=== PATIENT | female | born 1955 | race Caucasian/White ===

== ENCOUNTER 2017-01-02 16:50 | Emergency (ER) | payer MEDICAID ==
[~2017-01-02] VITALS: Ht 160 cm; Wt 66.0 kg
[~2017-01-02 16:50] MED LIST: ALBU18HF INHALATION; FLUT9.9S NASAL; KETO5DRO58 OP
[2017-01-02 17:02] VITALS: Ht 160 cm; Wt 66.0 kg
[2017-01-02] MEDS ORDERED: ONDANSETRON 4 MG INJ IV STA ×2 (18:37→23:17)
[2017-01-02] MEDS ORDERED: ACETAMINOPHEN 500 MG TAB PO STA (18:37)
[2017-01-02] MEDS ORDERED: SOD CHLORIDE 0.9% 1,000 ML IV STA (18:37)
[2017-01-02] MEDS ORDERED: KETOROLAC 15 MG INJ IV STA (18:37)
[2017-01-02 19:43] LABS: BASOPHIL # 0.1 10^3/ul (0.0-0.1); BASOPHILS % 0.9 % (0.0-2.0); EOSINOPHILS # 0.3 10^3/ul (0.0-0.5); EOSINOPHILS % 2.5 % (0.0-7.0); HEMOGLOBIN 12.9 g/dl (12.0-16.0); MEAN CORPUSCULAR HEMOGLOBIN 30.1 pg (29.0-33.0); MEAN CORPUSCULAR HGB CONC 33.1 g/dl (32.0-37.0); MEAN CORPUSCULAR VOLUME 91.1 fl (82.0-101.0); MEAN PLATELET VOLUME 10.1 fl (7.4-10.4); MONOCYTE # 1.3 10^3/ul (0.3-0.9); NEUTROPHIL # 9.4 10^3/ul (1.6-7.5); NEUTROPHILS % 71.3 % (39.0-77.0); PLATELET COUNT 295 10^3/UL (140-415); RED BLOOD COUNT 4.28 10^6/ul (4.20-5.40); RED CELL DISTRIBUTION WIDTH 13.1 % (11.5-14.5); WHITE BLOOD COUNT 13.2 10^3/ul (4.8-10.8)
[2017-01-02 20:03] LABS: ALBUMIN 4.5 g/dl (3.3-4.9); ALBUMIN/GLOBULIN RATIO 1.32; BILIRUBIN,INDIRECT 0.3 mg/dl (0-1.1); BILIRUBIN,TOTAL 0.3 mg/dl (0.2-1.3); CALCIUM 9.4 mg/dl (8.4-10.2); CREATININE 0.66 mg/dl (0.44-1.00); POTASSIUM 3.6 mmol/L (3.5-5.1); TOTAL PROTEIN 7.9 g/dl (6.1-8.1)
[2017-01-02 20:55] LABS: ADD UMIC NO; UR ASCORBIC ACID NEGATIVE (NEGATIVE); UR BILIRUBIN (Dip) NEGATIVE (NEGATIVE); UR BLOOD (Dip) NEGATIVE (NEGATIVE); UR CLARITY CLEAR (CLEAR); UR COLOR STRAW (YELLOW); UR GLUCOSE (Dip) 1+ mg/dL (NEGATIVE); UR KETONES (Dip) NEGATIVE (NEGATIVE); UR LEUKOCYTE ESTERASE (Dip) NEGATIVE Leu/ul (NEGATIVE); UR NITRITE (Dip) NEGATIVE (NEGATIVE); UR SPECIFIC GRAVITY (Dip) 1.006 (1.003-1.030); UR TOTAL PROTEIN (Dip) NEGATIVE (NEGATIVE); UR UROBILINOGEN (Dip) NEGATIVE (NEGATIVE)
--- NOTE | 2017-01-02 23:00 | RADRPT ---
PROCEDURE: XR Chest. CLINICAL INDICATION: Fever. TECHNIQUE: Single frontal view of the chest. COMPARISON: None. FINDINGS: The cardiomediastinal silhouette is within normal limits. Pulmonary vascular markings are accentuate d at lung bases secondary to overlying soft tissues. The lungs are clear. No signs of pleural fluid or pneumothorax are seen. The osseous structures and soft tissues are unremarkable. IMPRESSION: No evidence for active cardiopulmonary disease. RPTAT: [facility] Physician Payton Date Time Electronically viewed and signed by Physician Payton on 01/02/2017 22:59 RS/
[2017-01-02] MEDS ORDERED: morphine 10 MG INJ IV ONE (23:30)
[2017-01-03] MEDS ORDERED: ACET325T33 PO (00:35)
[2017-01-03] MEDS ORDERED: NAPR-688 PO (00:36)
[2017-01-03] MEDS ORDERED: ACETAMINOPHEN 325 MG TAB PO ONE (01:00)
--- NOTE | 2017-01-03 01:16 | RADRPT ---
PROCEDURE: XR Hip. CLINICAL INDICATION: Left hip pain and fever. TECHNIQUE: AP and frog lateral views of the left hip were performed. COMPARISON: None. FINDINGS: There is normal mineralization and alignment. No fracture or osseous lesion is identified. There are normal joints without evidence of arthritis or effusion. The soft tissues are unremarkable. IMPRESSION: Unremarkable left hip. RPTAT: [facility] Physician Payton Date Time Electronically viewed and signed by Physician Payton on 01/03/2017 01:16 RS/
--- NOTE | 2017-01-03 02:34 | RADRPT ---
PROCEDURE: Noncontrast CT examination of the left hip CLINICAL INDICATION: Left hip pain TECHNIQUE: Noncontrast CT examination of the left hip, with axial, sagittal and coronal reformatte d images. CTDI: 18.40 and DLP: 647.36 COMPARISON: Left hip plain film series dated today, earlier in the day FINDINGS: No acute fracture or dislocation. Dystrophic calcification at the expected location of the left pos terior labrum as well as over the posterior lateral left acetabulum may represent the sequela of a r emote posterior hip dislocation, with a posterior labral tear. If there is strong persistent concern for fracture MRI examination would be more sensitive and speci fic. Sigmoid colon diverticulosis. Mild distension of the urinary bladder. Soft tissues in the pelvis a re otherwise unremarkable. IMPRESSION: 1. No evident acute fracture. 2. If there is strong persistent concern for fracture MRI examination would be more sensitive and s pecific. 3. Likely remote tear of the posterior left labrum with dystrophic calcifications over the posterio r aspect of the lateral left acetabulum, suggesting sequela of remote posterior dislocation of the l eft hip. RPTAT: [facility] Physician Payton Date Time Electronically viewed and signed by Physician Payton on 01/03/2017 02:33 RS/
--- NOTE | 2017-01-03 02:35 | ERD ---
ER Documentation Chief Complaint Date/Time DATE: 01/03/17 TIME: 02:31 Chief Complaint Pt with Back pain that radiates to L leg X 2 days. HPI 61 year old female presents to the emergency department complaining of left hip pain that radiates down her left leg for the past couple days. Patient states fever started one day ago. She states pain is around 8/10, she can ambulate with difficulty ROS All systems reviewed and are negative except as per history of present illness. Medications Home Meds Active Scripts Naproxen* (Naproxen*) 500 Mg Tablet, 500 MG PO BID, #30 TAB Prov:DARCY GOOD PA-C 01/03/17 Acetaminophen* (Tylenol*) 325 Mg Tablet, 2 TAB PO Q4 Y for PAIN AND OR ELEVATED TEMP, #30 TAB Prov:DARCY GOOD PA-C 01/03/17 Ketotifen Fumarate (ZADITOR) 5 Ml Drops, 1 DROP OP Q8, #1 BOTTLE Prov:SOPHY WELCH ADOPTION WORKER 07/18/15 Fluticasone Propionate (Flonase Allergy Relief) 9.9 Ml [place].susp, 1 SPRAY NASAL DAILY, #1 BOTTLE TO EACH NOSTRIL Prov:SOPHY WELCH NP 07/18/15 Albuterol Sulfate* (Ventolin HFA*) 18 Gm Hfa.aer.ad, 2 PUFF INHALATION Q4H, #1 INHALER Prov:SOPHY WELCH. ADOPTION WORKER 07/18/15 Allergies Allergies: Coded Allergies: No Known Allergy (Unverified , 07/17/15) PMhx/Soc Medical and Surgical Hx: pt denies Surgical Hx Hx Respiratory Disorders: Yes (asthma) Hx Alcohol Use: No Hx Substance Use: No Hx Tobacco Use: No Smoking Status: Never smoker Physical Exam Vitals Vital Signs Date Time Temp Pulse Resp B/P Pulse Ox O2 Delivery O2 Flow Rate FiO2 01/03/17 02:50 98.0 65 18 105/68 98 Room Air 01/02/17 23:30 99.0 69 20 98/52 99 Room Air 01/02/17 17:02 100.1 90 18 109/71 97 Physical Exam Const: WD/WN Head: Atraumatic Eyes: Normal Conjunctiva ENT: Normal External Ears, Nose and Mouth. Neck: Full range of motion..~ No meningismus. Resp: Clear to auscultation bilaterally Cardio: Regular rate and rhythm, no murmurs Abd: Soft, non tender, non distended. Normal bowel sounds, non-tender. NO CVAT Skin: No petechiae or rashes Back: No midline or flank tenderness Ext: No cyanosis, or edema. TTP left hip, restricted ROM. able to ambulate with limp Neur: Awake and alert Psych: Normal Mood and Affect Result Diagram: 01/02/17192401/02/171924 Results 24 hrs Laboratory Tests Test 01/02/17 19:25 White Blood Count 13.210^3/ul Red Blood Count 4.2810^6/ul Hemoglobin 12.9g/dl Hematocrit 39.0% Mean Corpuscular Volume 91.1fl Mean Corpuscular Hemoglobin 30.1pg Mean Corpuscular Hemoglobin Concent 33.1g/dl Red Cell Distribution Width 13.1% Platelet Count 06139^3/UL Mean Platelet Volume 10.1fl Neutrophils % 71.3% Lymphocytes % 15.0% Monocytes % 10.0% Eosinophils % 2.5% Basophils % 0.9% Nucleated Red Blood Cells % 0.0/100WBC Neutrophils # 9.410^3/ul Lymphocytes # 2.010^3/ul Monocytes # 1.310^3/ul Eosinophils # 0.310^3/ul Basophils # 0.110^3/ul Nucleated Red Blood Cells # 0.010^3/ul Erythrocyte Sedimentation Rate 25mm/Hr Urine Color STRAW Urine Clarity CLEAR Urine pH 6.0 Urine Specific [place] 1.006 Urine Ketones NEGATIVEmg/dL Urine Nitrite NEGATIVEmg/dL Urine Bilirubin NEGATIVEmg/dL Urine Urobilinogen NEGATIVEmg/dL Urine Leukocyte Esterase NEGATIVELeu/ul Urine Hemoglobin NEGATIVEmg/dL Urine Glucose 1+mg/dL Urine Total Protein NEGATIVEmg/dl Sodium Level 142mmol/L Potassium Level 3.6mmol/L Chloride Level 103mmol/L Carbon Dioxide Level 25mmol/L Anion Gap 18 Blood Urea Nitrogen 13mg/dl Creatinine 0.66mg/dl Glucose Level 117mg/dl Calcium Level 9.4mg/dl Total Bilirubin 0.3mg/dl Direct Bilirubin 0.00mg/dl Indirect Bilirubin 0.3mg/dl Aspartate Amino Transf (AST/SGOT) 23IU/L Alanine Aminotransferase (ALT/SGPT) 35IU/L Alkaline Phosphatase 68IU/L C-Reactive Protein 5.2mg/dl Total Protein 7.9g/dl Albumin 4.5g/dl Globulin 3.40g/dl Albumin/Globulin Ratio 1.32 Lipase 111U/L Current Medications Medications (Trade) Dose Ordered Sig/Richy Route PRN Reason Start Time Stop Time Status Last Admin Dose Admin Sodium Chloride (NS) 1,000 ml @ 1,000 mls/hr Q1H STAT IV 01/02/17 18:37 01/02/17 19:36 DC 01/02/17 19:36 Ondansetron HCl (Zofran Inj) 4 mg ONCE STAT IV 01/02/17 18:37 01/02/17 18:39 DC 01/02/17 19:36 Ketorolac Tromethamine (Toradol) 15 mg ONCE STAT IV 01/02/17 18:37 01/02/17 18:39 DC 01/02/17 19:36 Acetaminophen (Tylenol Tab) 1,000 mg ONCE STAT PO 01/02/17 18:37 01/02/17 18:39 DC 01/02/17 19:36 Morphine Sulfate (morphine) 6 mg ONCE ONCE IV 01/02/17 23:30 01/02/17 23:31 DC 01/02/17 23:37 Ondansetron HCl (Zofran Inj) 4 mg ONCE STAT IV 01/02/17 23:17 01/02/17 23:18 DC 01/02/17 23:38 Acetaminophen (Tylenol Tab) 650 mg ONCE ONCE PO 01/03/17 01:00 01/03/17 01:01 DC 01/03/17 00:38 Procedures/MDM This is a 61-year-old female presenting to the emergency department febrile complaining of left hip pain that radiates down her left leg for the past 2 days. Differentials include but not limited to transient synovitis, viral syndrome with posterior left labrum tear. I doubt patient has septic joint at this time. Patient appears nontoxic, there is no evidence of pneumonia, meningitis, UTI or pyelonephritis. IV access is established. Lab work was done, patient had mild leukocytosis. UA did not show any evidence of infection. A urine culture was sent out. Chest x-ray did not show any evidence of infiltrates, no thorax or pleural effusion. X-ray of the left hip was negative. CT of the left hip was done and radiologist stated: 1. No evident acute fracture. 2. If there is strong persistent concern for fracture MRI examination would be more sensitive and specific. 3. Likely remote tear of the posterior left labrum with dystrophic calcifications over the posterior aspect of the lateral left acetabulum, suggesting sequela of remote posterior dislocation of the left hip. Patient was given Toradol, Tylenol and morphine in the ED. She appears doing better. I discussed with her to follow-up with her primary care physician. Discussed return to the ER for any worsening symptoms. Patient understands and agrees with this plan Departure Diagnosis: Primary Impression: Fever Additional Impression: Hip pain Condition: Stable Patient Instructions: Fever Control (Adult) Additional Instructions: FOLLOW UP WITH YOUR PRIMARY CARE PHYSICIAN TOMORROW.Return to this facility if you are not improving as expected. Take all medicines as directed. Return to this facility if you are not improving as expected. DARCY GOOD PA-C Jan 03, 2017 02:35
[2017-01-03 02:50] VITALS: BP 105/68; PULSE 65; RESP 18; TEMP 98
== END 2017-01-03 03:18 | disposition home or self-care (01) ==
LOC: FTE 16:50
DX: R50.9 Fever, unspecified (principal); J45.909 Unspecified asthma, uncomplicated
CPT/HCPCS: 71010; 73510; 73700; 80053; 81003; 83690; 85025; 85651; 86140; J1885; J2270; J2405; J7030; Z7610; 36415; 96374; 96375; 96376

== ENCOUNTER 2017-06-10 02:03 | Emergency (ER) | END 2017-06-10 08:47 | disposition home or self-care (01) ==

== ENCOUNTER 2018-08-22 21:19 | Emergency (ER) | payer MEDICAID ==
[~2018-08-22] VITALS: Ht 167.6 cm; Wt 69.4 kg
[~2018-08-22 21:19] MED LIST changes: +ACET325T33 PO; +ALBU8.5H8 INH; +HYDR-3980 PO; -KETO5DRO58 OP; +KETO5DRO71 OP; +NAPR-688 PO; +OSEL75CA23 PO
[2018-08-22 22:06] VITALS: Ht 167.6 cm; Wt 69.4 kg
[2018-08-22] MEDS ORDERED: ALBUTEROL 0.083% (NEB) 2.5 MG/3 ML AMP HHN STA (22:35)
--- NOTE | 2018-08-22 22:40 | ERD ---
ER Documentation Chief Complaint Chief Complaint SOB, CHEST CONGESTION, HX OF ASTHMA HPI This is a 63-year-old female presents to emerge department with complaints of shortness of breath, chest congestion, dry cough for about 3 days. Stated that she has been using her inhaler without relief. She also stated that she has been sneezing every morning. Added that she has history of allergies. LMP: Stated that she does not have any measured. Anymore. A0. Denies headache, head injury, loss of consciousness, dizziness, neck pain, neck stiffness, throat pain, difficulty swallowing, difficulty breathing lying flat, shoulder pain, chest pain, back pain, abdominal pain, nausea, vomiting, con stipation, diarrhea, urinary symptoms, or possibility being , loss of bowel and bladder control, trauma, injury, falls, difficulty walking due to pain, numbness or tingling sensation, calf pain, recent travel, recent major surgery in the last 3 weeks, calf pain, recent long travel, recent exposure to any illness, recent antibiotic use in the last 3 months, fever, chills, seizures. Past medical history: Asthma. Surgical history: Social: Denies smoking, use of alcoholic beverages, use of illegal drugs. ROS All systems reviewed and are negative except as per history of present illness. Medications Home Meds Active Scripts Prednisone* (Prednisone*) 20 Mg Tab, 20 MG PO DAILY for 2 Days, TAB Prov:JAIDA FERMIN F 08/22/18 Loratadine* (Loratadine*) 10 Mg Tablet, 10 MG PO DAILY, #30 TAB Prov:PASJAIDA LANDRUM F 08/22/18 Benzonatate* (Tessalon Perle*) 100 Mg Capsule, 100 MG PO Q8H PRN for COUGH, #14 CAP Prov:PASILAJAIDA MIKE F 08/22/18 Azithromycin* (Zithromax*) 250 Mg Tablet, 250 MG PO .ZPACK DIRECTED, #6 TAB TAKE 500 MG (2 TABS) THE FIRST DAY THEN 250 MG (1 TAB) DAYS 2-5 Prov:PASILAJAIDA MIKE F 08/22/18 Albuterol Sulfate* (Proair HFA*) 8.5 Gm Hfa.aer.ad, 2 PUFF INH Q4 PRN for WHEEZING, #1 INHALER Prov:PASILAJAIDA MIKE F 08/22/18 Hydrocodone/Acetaminophen ([place] 10-325 Tablet) 1 Each Tablet, 1 TAB PO Q6H PRN for PAIN, #14 TAB Prov:JEANNERAADDINA Gordon. DO 06/10/17 Albuterol Sulfate* (Proair HFA*) 8.5 Gm Hfa.aer.ad, 2 PUFF INH Q4, #1 INHALER Prov:MIROSLAVA ANGELSTROGERS A. DO 06/10/17 Oseltamivir Phosphate* (Tamiflu*) 75 Mg Capsule, 75 MG PO BID for 5 Days, CAP Prov:ERLINMICKMIROSLAVASTOLOS A. DO 06/10/17 Naproxen* (Naproxen*) 500 Mg Tablet, 500 MG PO BID, #30 TAB Prov:DARCY GOOD PA-C 01/03/17 Acetaminophen* (Tylenol*) 325 Mg Tablet, 2 TAB PO Q4 PRN for PAIN AND OR ELEVATED TEMP, #30 TAB Prov:DARCY GOOD PA-C 01/03/17 Ketotifen Fumarate (ZADITOR) 5 Ml Drops, 1 DROP OP Q8, #1 BOTTLE Prov:SOPHY WELCH LOCOMOTIVE OPERATOR 07/18/15 Fluticasone Propionate (Flonase Allergy Relief) 9.9 Ml [place].susp, 1 SPRAY NASAL DAILY, #1 BOTTLE TO EACH NOSTRIL Prov:SOPHY WELCH. LOCOMOTIVE OPERATOR 07/18/15 Albuterol Sulfate* (Ventolin HFA*) 18 Gm Hfa.aer.ad, 2 PUFF INHALATION Q4H, #1 INHALER Prov:SOPHY WELCH. LOCOMOTIVE OPERATOR 07/18/15 Allergies Allergies: Coded Allergies: No Known Allergy (Unverified , 07/17/15) PMhx/Soc History of Surgery: No Anesthesia Reaction: No Hx Neurological Disorder: No Hx Respiratory Disorders: Yes (asthma) Hx Cardiac Disorders: No Hx Psychiatric Problems: No Hx Miscellaneous Medical Probl: No Hx Alcohol Use: No Hx Substance Use: No Hx Tobacco Use: No Smoking Status: Never smoker Physical Exam Vitals Physical Exam Const: No acute distress Head: Atraumatic Eyes: Normal Conjunctiva ENT: Normal External Ears, Nose and Mouth. Bilateral ears: TM is not erythem atous with no bleeding no discharge. Nose: There is no frontomaxillary sinus tenderness palpation. Throat: Uvula is at midline and nondisplaced. Tonsils are +1 bilaterally without redness without exudates. Tolerating secretions with patent airway. Speaks full and clear sentences. No tripoding. Neck: Full range of motion. No meningismus. Resp: No accessory muscle use in breathing. Wheezing bilaterally. Cardio: Regular rate and rhythm, no murmurs Abd: Soft, non tender, non distended. Normal bowel sounds Skin: No petechiae or rashes. No skin tenting. No signs of severe dehydration. Back: No midline or flank tenderness Ext: No cyanosis, or edema Neur: Awake and alert. No neurological deficit. Psych: Normal Mood and Affect Results 24 hrs Current Medications Medications Dose Sig/Richy Start Time Status Last (Trade) Ordered Route PRN Stop Time Admin Dose Reason Admin Albuterol 5 mg ONCE STAT 08/22/18 DC 08/22/18 (Proventil HHN 22:35 23:07 0.083% (Neb)) 08/22/18 22:37 Ipratropium 0.5 mg ONCE ONCE 08/22/18 DC 08/22/18 [place] HHN 23:00 23:07 (Atrovent 08/22/18 23:01 0.02% (Neb)) 10 mg ONCE ONCE 08/22/18 DC 08/22/18 Dexamethasone IM 23:00 23:00 (Decadron) 08/22/18 23:01 Procedures/MDM Diagnostic tests: Clinical exam. Treatment: Dexamethasone IM. Albuterol and Atrovent breathing treatment. Re-evaluation: No accessory muscle use in breathing. Respirations even and unlabored. Lungs are clear to auscultation. Speaks full and clear sentences. No tripoding. No airway obstruction. Stated that she feels much better examined that she is ready to go home. Differential diagnosis I have low suspicion for airway obstruction, pneumonia, sepsis, bronchospasm, status asthmaticus. Final diagnosis: Asthma exacerbation. Asthmatic bronchitis. Prescription: Azithromycin. Pro-air. Tessalon Perles. Claritin daily. Follow-up with PCP in the next 24-48 hours. Come back here in the emergency department for any new symptoms or any worsening symptoms. All questions and concerns were answered. Patient and family members verbalized understanding and agreed with plan of care. Hemodynamically stable on discharge. Departure Diagnosis: Primary Impression: Asthma with acute exacerbation Additional Impressions: Asthmatic bronchitis Allergic rhinitis Seasonal allergies Condition: Stable Additional Instructions: Follow-up with PCP in the next 24-48 hours. Come back here in the emergency department for any new symptoms or any worsening symptoms. JAIDA FERMIN Aug 22, 2018 22:40
[2018-08-22] MEDS ORDERED: ALBU8.5H8 INH (22:44)
[2018-08-22] MEDS ORDERED: AZIT250T PO (22:45)
[2018-08-22] MEDS ORDERED: BENZ-6 PO (22:45)
[2018-08-22] MEDS ORDERED: LORA10TA3 PO (22:45)
[2018-08-22] MEDS ORDERED: DEXAMETHASONE 10 MG/ML 1 ML INJ IM ONE (23:00)
[2018-08-22] MEDS ORDERED: IPRATROPIUM (NEB) 0.5 MG/2.5 ML AMP HHN ONE (23:00)
[2018-08-22] MEDS ORDERED: PRED20TA PO (23:26)
[2018-08-22 23:30] VITALS: BP 120/82; PULSE 82; RESP 18
== END 2018-08-22 23:30 | disposition home or self-care (01) ==
LOC: FTE 21:19
DX: J45.901 Unspecified asthma with (acute) exacerbation (principal); J30.1 Allergic rhinitis due to pollen
CPT/HCPCS: 94664; 96372; J1100; Z7502; Z7610

== ENCOUNTER 2018-09-19 16:49 | Emergency (ER) | payer MEDICAID ==
[~2018-09-19] VITALS: Ht 165.1 cm; Wt 66.4 kg
[~2018-09-19 16:49] MED LIST changes: +AZIT250T PO; +BENZ-6 PO; +LORA10TA3 PO; +PRED20TA PO
[2018-09-19 17:17] VITALS: Ht 165.1 cm; Wt 66.4 kg
[2018-09-19] MEDS ORDERED: ALBUTEROL 0.5% (NEB) 2.5 MG/0.5 ML AMP NEB STA (17:52)
[2018-09-19] MEDS ORDERED: IPRATROPIUM (NEB) 0.5 MG/2.5 ML AMP NEB STA (17:52)
[2018-09-19] MEDS ORDERED: METHYLPREDNISOLONE 125 MG INJ IV STA (17:52)
--- NOTE | 2018-09-19 18:21 | ERD ---
ER Documentation Chief Complaint Chief Complaint COUGH ; SOB HPI 63-year-old female presents with complaint of cough and wheezing for the past month. Patient states that she was just here a month ago was given a breathing treatment as well as prescription for albuterol but the albuterol has not worked to resolve her wheezing. She denies any fevers, hemoptysis, leg swelling, leg pain, malignancy, recent surgery, dyspnea, night sweats, weight loss, fatigue, pleuritic chest pain, or orthopnea. Denies past medical history. Denies allergies. Denies medications. Denies surgeries. Denies alcohol, tobacco, or drug use. ROS All systems reviewed and are negative except as per history of present illness. Medications Home Meds Active Scripts Albuterol Sulfate* (Albuterol Sulfate* Neb) 0.083%-3 Ml Neb, 2.5 MG NEB Q4 PRN for SHORTNESS OF BREATH, #30 EA Prov:GONZALO WHALEN 09/19/18 Promethazine HCl/Codeine (Prometh-Codein 6.25-10 mg/5 ml) 5 Ml Syrup, 5 ML PO Q4, #4 OZ Prov:GONZALO WHALEN 09/19/18 Sodium Chloride (Saline Nasal Mist) 126 Ml Mist, 2 SPRAY NASAL Q4 PRN for dry mucosa, #1 BOTTLE Prov:GONZALO WHALEN 09/19/18 Prednisone* (Prednisone*) 20 Mg Tab, 60 MG PO DAILY for asthma for 5 Days, TAB Prov:GONZALO WHALEN 09/19/18 Azithromycin* (Zithromax*) 250 Mg Tablet, 250 MG PO .Mary AlicePACK DIRECTED, #6 TAB TAKE 500 MG (2 TABS) THE FIRST DAY THEN 250 MG (1 TAB) DAYS 2-5 Prov:GONZALO WHALEN 09/19/18 Albuterol Sulfate* (Ventolin HFA*) 18 Gm Hfa.aer.ad, 2 PUFF INHALATION Q4H, #1 INHALER Prov:GONZALO WHALEN 09/19/18 Prednisone* (Prednisone*) 20 Mg Tab, 20 MG PO DAILY for 2 Days, TAB Prov:JAIDA FERMIN 08/22/18 Loratadine* (Loratadine*) 10 Mg Tablet, 10 MG PO DAILY, #30 TAB Prov:PASJAIDA LANDRUM 08/22/18 Benzonatate* (Tessalon Perle*) 100 Mg Capsule, 100 MG PO Q8H PRN for COUGH, #14 CAP Prov:JAIDA FERMIN 08/22/18 Albuterol Sulfate* (Proair HFA*) 8.5 Gm Hfa.aer.ad, 2 PUFF INH Q4 PRN for WHEEZING, #1 INHALER Prov:JAIDA FERMIN F 08/22/18 Hydrocodone/Acetaminophen ([place] 10-325 Tablet) 1 Each Tablet, 1 TAB PO Q6H PRN for PAIN, #14 TAB Prov:LEKKOSAPOSTOLOS A. DO 06/10/17 Albuterol Sulfate* (Proair HFA*) 8.5 Gm Hfa.aer.ad, 2 PUFF INH Q4, #1 INHALER Prov:LEKKOSAPOSTOLOS A. DO 06/10/17 Oseltamivir Phosphate* (Tamiflu*) 75 Mg Capsule, 75 MG PO BID for 5 Days, CAP Prov:ERLINOSMIROSLAVASTOLOS A. DO 06/10/17 Naproxen* (Naproxen*) 500 Mg Tablet, 500 MG PO BID, #30 TAB Prov:DARCY GOOD PA-C 01/03/17 Acetaminophen* (Tylenol*) 325 Mg Tablet, 2 TAB PO Q4 PRN for PAIN AND OR ELEVATED TEMP, #30 TAB Prov:DARCY GOOD PA-C 01/03/17 Ketotifen Fumarate (ZADITOR) 5 Ml Drops, 1 DROP OP Q8, #1 BOTTLE Prov:SOPHY WELCH NP 07/18/15 Fluticasone Propionate (Flonase Allergy Relief) 9.9 Ml [place].susp, 1 SPRAY NASAL DAILY, #1 BOTTLE TO EACH NOSTRIL Prov:SOPHY WELCH NP 07/18/15 Allergies Allergies: Coded Allergies: No Known Allergy (Unverified , 07/17/15) PMhx/Soc History of Surgery: No Anesthesia Reaction: No Hx Neurological Disorder: No Hx Respiratory Disorders: Yes (asthma) Hx Cardiac Disorders: No Hx Psychiatric Problems: No Hx Miscellaneous Medical Probl: No Hx Alcohol Use: No Hx Substance Use: No Hx Tobacco Use: No Smoking Status: Never smoker FmHx Family History: No diabetes, No coronary disease, No other Physical Exam Vitals Vital Signs Date Temp Pulse Resp B/P (MAP) Pulse Ox O2 O2 Flow FiO2 Time Delivery Rate 09/19/18 98.2 76 22 120/69 94 Room Air 19:53 (86) 09/19/18 87 20 93 21 18:04 09/19/18 98.5 87 20 93 17:17 Physical Exam Const: No acute distress Head: Atraumatic Eyes: Normal Conjunctiva ENT: Normal External Ears, Nose and Mouth. Neck: Full range of motion. No meningismus. Resp: Wheezing and crackles heard in the bilateral lung dooley diffusely. Equal breath sounds. Equal rise and fall of chest wall. Cardio: Regular rate and rhythm, no murmurs Abd: Soft, non tender, non distended. Normal bowel sounds Skin: No petechiae or rashes Back: No midline or flank tenderness Ext: No cyanosis, or edema Neur: Awake and alert Psych: Normal Mood and Affect Results 24 hrs Current Medications Medications Dose Sig/Richy Start Time Status Last (Trade) Ordered Route PRN Stop Time Admin Dose Reason Admin Albuterol 10 mg ONCE STAT 09/19/18 DC 09/19/18 (Proventil NEB 17:52 18:04 0.5% (Neb)) 09/19/18 17:55 Ipratropium 1.5 mg ONCE STAT 09/19/18 DC 09/19/18 [place] NEB 17:52 18:03 (Atrovent 09/19/18 17:55 0.02% (Neb)) 125 mg ONCE STAT 09/19/18 DC 09/19/18 Methylprednis IV 17:52 18:07 olone Sodium 09/19/18 17:55 Succinate (Solu-Medrol) Procedures/MDM DIAGNOSTIC IMAGING REPORT Patient: SHOAIB ALONZO : 1955 Age: 63 Sex: F [id number] DOS: 09/19/18 175 Ordering MD: GONZALO WHALEN Location: [facility]TE Room/Bed: PROCEDURE: DX Chest 1 View CLINICAL INDICATION: Asthma exacerbation. TECHNIQUE: AP Portable chest. COMPARISON: None FINDINGS: Mildly hyperinflated lungs. Normal cardiac and mediastinal configuration. Aortic calcified plaque not visualized. No CHF or hilar enlargement. Mild accentuated linear markings are present in both lungs. There is a thick band of atelectasis at the left lung base. Possible small areas of bronchial mucus plugging left lung base. No pneumothorax or pleural effusion. IMPRESSION: Left base subsegmental atelectasis. Mild accentuated linear markings with mild hyperinflation, consistent with reactive airway disease. RPTAT: [facility] Physician Amy Date Time Electronically viewed and signed by Dc Waterman Physician on 09/19/2018 18:50 RS/ CC: GONZALO WHALEN [id number] ER Course: Patient given treatment with nebulized albuterol, ipatropium, and steroids. MDM: I have low suspicion for status asthmaticus due to patient improvement after breathing treatment. I have low suspicion for CHF, pneumonia, aspirated foreign body, pneumothorax, PE, respiratory distress, or other emergent condition based on exam and patient history. In addition, patient does not meet Wells score criteria for D-Dimer. Presentation consistent with asthma exacerbation for which patient was given breathing treatment and steroids in ER. After breathing treatment was finished, patients 02 saturation improved and patient stated they felt much better. Patient was discharged with rx for albuterol and a short course of oral steroids. Patient was also given Rx for azithromycin to rule out possible pneumonia As well as promethazine with codeine for cough. Patient was also advised that asthma has to be managed on outpatient basis by primary care provider. Patient discharged with strict ER precautions. Patient advised to follow up with PMD. All questions answered at discharge. Departure Diagnosis: Primary Impression: Asthma Asthma severity: unspecified severity Asthma persistence: unspecified Asthma complication type: unspecified Qualified Codes: J45.909 - Unspecified asthma, uncomplicated Condition: Stable GONZALO WHALEN Sep 19, 2018 18:21
[2018-09-19] MEDS ORDERED: PRED20TA PO (19:31)
[2018-09-19] MEDS ORDERED: PROM5SYR2 PO (19:31)
[2018-09-19] MEDS ORDERED: SODI126M NASAL (19:31)
[2018-09-19] MEDS ORDERED: AZIT250T PO (19:31)
[2018-09-19] MEDS ORDERED: ALBU18HF INHALATION (19:31)
[2018-09-19] MEDS ORDERED: ALBU2.5V3 NEB (19:35)
[2018-09-19 19:53] VITALS: BP 120/69; PULSE 76; RESP 22
== END 2018-09-19 20:05 | disposition home or self-care (01) ==
LOC: FTE 16:49
DX: J45.901 Unspecified asthma with (acute) exacerbation (principal)
CPT/HCPCS: 71045; 94644; 96374; J2930; Z7502; Z7610

== ENCOUNTER 2019-01-13 09:21 | Emergency (ER) | payer MEDICAID ==
[~2019-01-13] VITALS: Ht 165.1 cm; Wt 66.7 kg
[~2019-01-13 09:21] MED LIST changes: +ACET500C5 PO; +ALBU2.5V3 NEB; +NAPR-985 PO; +PROM5SYR2 PO; +SODI126M NASAL
[2019-01-13 09:30] VITALS: Ht 165.1 cm; Wt 66.7 kg
[2019-01-13] MEDS ORDERED: KETOROLAC 30 MG INJ IM STA (09:54)
[2019-01-13] MEDS ORDERED: ACETAMINOPHEN 500 MG TAB PO STA (09:54)
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
[2019-01-13 11:36] VITALS: BP 128/77; PULSE 71; RESP 18
== END 2019-01-13 11:37 | disposition home or self-care (01) ==
LOC: FTE 09:21
DX: S16.1XXA Strain of muscle, fascia and tendon at neck level, initial encounter (principal); J45.909 Unspecified asthma, uncomplicated; S50.01XA Contusion of right elbow, initial encounter; V43.92XA Unspecified car occupant injured in collision with other type car in traffic accident, initial encounter
CPT/HCPCS: 72050; 73030; 73060; 73080; 73520; 96372; J1885; Z7502; Z7610; 73522